=== PATIENT | male | born 2000 | race Caucasian/White ===

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

== ENCOUNTER 2023-10-12 11:16 | Emergency (ER) | payer OTHER ==
[2023-10-12 11:31] VITALS: BP 119/57; PULSE 68; RESP 18; TEMP 97.7; BMI 31.0
== END 2023-10-12 12:15 | disposition home or self-care (01) ==
LOC: FER 11:16
DX: S01.81XA Laceration without foreign body of other part of head, initial encounter (principal); S80.212A Abrasion, left knee, initial encounter; S60.512A Abrasion of left hand, initial encounter; S60.511A Abrasion of right hand, initial encounter; V18.0XXA Pedal cycle driver injured in noncollision transport accident in nontraffic accident, initial encounter
CPT/HCPCS: 99282-25